=== PATIENT | male | born 1965 | race Hispanic/Latino ===

== ENCOUNTER 2021-03-05 00:21 | Inpatient (IN) | payer SELFPAY ==
[2021-03-05] VITALS (7 sets, daily range): BP systolic 125–158; BP diastolic 70–98
[~2021-03-05] VITALS: Ht 177.8 cm; Wt 139.5 kg
[2021-03-05] MEDS ORDERED: MORPHINE 4 MG SYG IV ONE (01:00)
[2021-03-05 01:32] LABS: BASOPHILS % (AUTO) 0.3 % (0.0-5.0); EOSINOPHILS % (AUTO) 2.6 % (0.0-8.0); HEMATOCRIT 45.5 % (42-54); LYMPHOCYTES % (AUTO) 17.2 % (21.0-51.0); MEAN CORPUSCULAR HEMOGLOBIN 29.2 pg (27.0-33.0); MEAN CORPUSCULAR HGB CONC 33.6 g/dL (32.0-36.0); MEAN CORPUSCULAR VOLUME 86.8 fL (79-99); MONOCYTES % (AUTO) 7.7 % (3.0-13.0); NEUTROPHILS % (AUTO) 71.7 % (40.0-77.0); PLATELET COUNT (AUTO) 265 K/uL (130-400); RED BLOOD CELL COUNT(AUTO) 5.24 MIL/uL (4.50-6.20); RED CELL DISTRIBUTION WIDTH 12.4 % (11.0-15.5); WHITE BLOOD COUNT (AUTO) 11.6 K/uL (4.8-10.8)
[2021-03-05 01:38] LABS: APPEARANCE,URINE Clear (CLEAR); BILIRUBIN,URINE Small (NEGATIVE); COLOR,URINE Dark Yellow (YELLOW); GLUCOSE, URINE (UA) Negative (NEGATIVE); KETONES,URINE Trace mg/dL (NEGATIVE); LEUKOCYTE ESTERASE ,URINE Trace (NEGATIVE); NITRATE,URINE Negative (NEGATIVE); OCCULT BLOOD,URINE Trace (NEGATIVE); PROTEIN,URINE Trace mg/dL (NEGATIVE)
[2021-03-05 01:52] LABS: CREATININE 0.9 mg/dL (0.5-1.5); POTASSIUM 4.7 mmol/L (3.5-5.1)
[2021-03-05 01:57] LABS: BACTERIA,URINE Rare /HPF (None Seen); BILIRUBIN,TOTAL 0.7 mg/dL (0.2-1.0); CRP QUANTITATIVE 53.7 mg/L (0.00-9.0); SQUAMOUS EPITHELIAL CELL,UR 0-2 /HPF (0-2); TOTAL PROTEIN, SERUM 7.7 g/dL (6.0-8.3); WBC,URINE 0-1 /HPF (0-1)
[2021-03-05 02:41] LABS: ERYTHROCYTE SEDIMENTATION RATE 27 MM/HR (0-20)
[2021-03-05] MEDS ORDERED: IOHEXOL 350 MG/ML 100ML INFUS..BTL IV ONE (02:50)
[2021-03-05] MEDS ORDERED: ZOSYN 3.375GM+NS 50ML 50 ML IV ONE (04:35)
[2021-03-05] MEDS ORDERED: 0.9%NACL 50ML 50 ML IV ONE ×2 (04:36→20:33)
[2021-03-05] MEDS ORDERED: ZOSYN 3.375GM +NS 50ML IV ONE (05:00)
[2021-03-05] MEDS: 0.9%NACL 1000ML 1,000 ML IV SCH ×2 (06:47→17:00)
[2021-03-05] MEDS ORDERED: LACTULOSE 20 GM/30 ML UDCUP PO PRN (07:00)
[2021-03-05] MEDS ORDERED: ONDANSETRON 4MG INJ IV PRN (07:00)
[2021-03-05] MEDS ORDERED: ACETAMINOPHEN 325 MG TAB PO PRN (07:00)
[2021-03-05] MEDS: FAMOTIDINE 20MG VIAL IV SCH ×2 (08:18→20:30)
[2021-03-05] MEDS: ENOXAPARIN SODIUM 40 MG/0.4 ML SYRINGE SQ SCH (08:18)
[2021-03-05 08:28] LABS: INR 0.96 (0.85-1.15); PROTHROMBIN TIME 10.5 SEC (9.6-11.6)
[2021-03-05 08:30] LABS: PARTIAL THROMBOPLASTIN TIME 27.6 SEC (26.3-35.5)
[2021-03-05 08:34] LABS: HEMOGLOBIN A1C 6.5 % (4.0-6.0)
[2021-03-05] MEDS: ZOSYN 3.375GM+NS 50ML 50 ML IV SCH ×2 (14:24→20:30)
[2021-03-05] MEDS ORDERED: MAGNESIUM CITRATE 296 ML SOLUTION PO SCH (19:00)
[2021-03-05] MEDS: ACETAMINOPHEN 325 MG TAB PO PRN (22:32)
[2021-03-06] VITALS (7 sets, daily range): BP systolic 133–160; BP diastolic 64–104
[2021-03-06] MEDS: 0.9%NACL 1000ML 1,000 ML IV SCH ×3 (03:00→22:02)
[2021-03-06] MEDS: ZOSYN 3.375GM+NS 50ML 50 ML IV SCH ×3 (03:53→20:25)
[2021-03-06] MEDS ORDERED: HYDRALAZINE 20MG/ML VIAL ONE (04:14)
[2021-03-06] MEDS ORDERED: HYDRALAZINE 20MG/ML VIAL IV PRN (04:30)
[2021-03-06] MEDS ORDERED: HYDRALAZINE 20MG/ML VIAL IM PRN (04:30)
[2021-03-06 05:42] LABS: BASOPHILS % (AUTO) 0.5 % (0.0-5.0); EOSINOPHILS % (AUTO) 2.1 % (0.0-8.0); HEMATOCRIT 49.4 % (42-54); LYMPHOCYTES % (AUTO) 16.6 % (21.0-51.0); MEAN CORPUSCULAR HEMOGLOBIN 28.8 pg (27.0-33.0); MEAN CORPUSCULAR HGB CONC 33.2 g/dL (32.0-36.0); MEAN CORPUSCULAR VOLUME 86.8 fL (79-99); MONOCYTES % (AUTO) 5.3 % (3.0-13.0); NEUTROPHILS % (AUTO) 75.1 % (40.0-77.0); PLATELET COUNT (AUTO) 341 K/uL (130-400); RED BLOOD CELL COUNT(AUTO) 5.69 MIL/uL (4.50-6.20); RED CELL DISTRIBUTION WIDTH 12.5 % (11.0-15.5); WHITE BLOOD COUNT (AUTO) 15.8 K/uL (4.8-10.8)
[2021-03-06 06:08] LABS: POTASSIUM 3.8 mmol/L (3.5-5.1)
[2021-03-06] MEDS: ENOXAPARIN SODIUM 40 MG/0.4 ML SYRINGE SQ SCH (09:00)
[2021-03-06] MEDS: FAMOTIDINE 20MG VIAL IV SCH ×2 (09:30→20:25)
[2021-03-07] VITALS (28 sets, daily range): BP systolic 136–190; BP diastolic 82–120
[2021-03-07] MEDS: ZOSYN 3.375GM+NS 50ML 50 ML IV SCH ×3 (04:56→20:53)
[2021-03-07 04:58] LABS: BASOPHILS % (AUTO) 0.4 % (0.0-5.0); EOSINOPHILS % (AUTO) 2.5 % (0.0-8.0); HEMATOCRIT 43.8 % (42-54); MEAN CORPUSCULAR HEMOGLOBIN 28.7 pg (27.0-33.0); MEAN CORPUSCULAR HGB CONC 32.9 g/dL (32.0-36.0); MEAN CORPUSCULAR VOLUME 87.3 fL (79-99); MONOCYTES % (AUTO) 6.6 % (3.0-13.0); NEUTROPHILS % (AUTO) 77.2 % (40.0-77.0); PLATELET COUNT (AUTO) 302 K/uL (130-400); RED BLOOD CELL COUNT(AUTO) 5.02 MIL/uL (4.50-6.20); RED CELL DISTRIBUTION WIDTH 12.4 % (11.0-15.5); WHITE BLOOD COUNT (AUTO) 13.4 K/uL (4.8-10.8)
[2021-03-07 05:11] LABS: POTASSIUM 3.4 mmol/L (3.5-5.1)
[2021-03-07] MEDS: ENOXAPARIN SODIUM 40 MG/0.4 ML SYRINGE SQ SCH (09:00)
[2021-03-07] MEDS: FAMOTIDINE 20MG VIAL IV SCH ×2 (10:17→21:19)
[2021-03-07] MEDS ORDERED: POTASSIUM CHLORIDE 20MEQ/100ML 100 ML IV PRN (12:00)
[2021-03-07] MEDS ORDERED: LIDOCAINE HCL-MPF 1% 2ML VIAL IV PRN (12:00)
[2021-03-07] MEDS ORDERED: LIDOCAINE PF 100MG/5ML (2%) SYRINGE 5ML ONE (15:34)
[2021-03-07] MEDS ORDERED: SUCCINYLCHOLINE CHLORIDE 20 MG/ML 10 ML VIAL ONE (15:34)
[2021-03-07] MEDS ORDERED: DEXAMETHASONE SOD PHOSPHATE 10MG/ML 1ML VIAL ONE (15:34)
[2021-03-07] MEDS ORDERED: MIDAZOLAM HCL 1 MG/ML 2ML VIAL ONE (15:35)
[2021-03-07] MEDS ORDERED: NEOSTIGMINE 5MG/5ML SYR IV ONE (15:36)
[2021-03-07] MEDS ORDERED: ONDANSETRON 4MG INJ ONE (15:36)
[2021-03-07] MEDS ORDERED: GLYCOPYRROLATE 1 MG/5 ML SYRINGE ONE (15:36)
[2021-03-07] MEDS ORDERED: FENTANYL CITRATE PF 50 MCG/1 ML 2ML VIAL ONE ×4 (15:36→18:50)
[2021-03-07] MEDS ORDERED: ROCURONIUM 10MG/1ML SYR 10 MG/ML ML ONE (15:36)
[2021-03-07] MEDS ORDERED: PROPOFOL 10 MG/ML 20ML VIAL IV ONE (15:36)
[2021-03-07] MEDS ORDERED: PHENYLEPHRINE HCL 10 MG/ML 1ML VIAL IV ONE (18:14)
[2021-03-07] MEDS ORDERED: CEFAZOLIN SODIUM 1 GM VIAL ONE (18:18)
[2021-03-07] MEDS ORDERED: ESMOLOL HCL 10 MG/ML 10 ML VIAL ONE (18:26)
[2021-03-07] MEDS ORDERED: LIDOCAINE HCL 1% 20 ML VIAL ONE (19:30)
[2021-03-07] MEDS ORDERED: BUPIVACAINE/EPI/PF 0.5% 30ML VIAL IJ ONE (19:30)
[2021-03-07] MEDS ORDERED: MEPERIDINE-PF 25 MG/ML SYG ONE ×3 (19:33→22:04)
[2021-03-07] MEDS ORDERED: SUGAMMADEX SODIUM 200 MG/2 ML VIAL IV ONE (19:57)
[2021-03-07] MEDS: 0.9%NACL 1000ML 1,000 ML IV SCH (20:15)
[2021-03-07] MEDS ORDERED: LABETALOL 20MG VIAL IV ONE (20:17)
[2021-03-07] MEDS ORDERED: HYDRALAZINE 20MG/ML VIAL ONE (20:58)
[2021-03-08] VITALS (27 sets, daily range): BP systolic 109–162; BP diastolic 67–95
[2021-03-08] MEDS: HYDROMORPHONE 1 MG INJ IVP PRN ×5 (02:24→21:01)
[2021-03-08 03:33] LABS: BASOPHILS % (AUTO) 0.2 % (0.0-5.0); EOSINOPHILS % (AUTO) 1.1 % (0.0-8.0); HEMATOCRIT 42.8 % (42-54); LYMPHOCYTES % (AUTO) 3.8 % (21.0-51.0); MEAN CORPUSCULAR HEMOGLOBIN 28.9 pg (27.0-33.0); MEAN CORPUSCULAR HGB CONC 32.7 g/dL (32.0-36.0); MEAN CORPUSCULAR VOLUME 88.4 fL (79-99); MONOCYTES % (AUTO) 3.8 % (3.0-13.0); NEUTROPHILS % (AUTO) 90.6 % (40.0-77.0); PLATELET COUNT (AUTO) 318 K/uL (130-400); RED BLOOD CELL COUNT(AUTO) 4.84 MIL/uL (4.50-6.20); RED CELL DISTRIBUTION WIDTH 12.4 % (11.0-15.5)
[2021-03-08 03:45] LABS: CREATININE 0.9 mg/dL (0.5-1.5); MAGNESIUM 2.1 mg/dL (1.80-2.40); PHOSPHORUS 4.4 mg/dL (2.5-4.9); POTASSIUM 4.1 mmol/L (3.5-5.1)
[2021-03-08] MEDS ORDERED: 0.9%NACL 100ML 0 ML ONE (04:36)
[2021-03-08] MEDS: ZOSYN 3.375GM+NS 50ML 50 ML IV SCH ×3 (04:46→20:48)
[2021-03-08] MEDS: ENOXAPARIN SODIUM 40 MG/0.4 ML SYRINGE SQ SCH (09:28)
[2021-03-08] MEDS: FAMOTIDINE 20MG VIAL IV SCH ×2 (09:28→20:48)
[2021-03-08] MEDS: 0.9%NACL 1000ML 1,000 ML IV SCH ×2 (15:00→15:47)
[2021-03-08] MEDS ORDERED: 0.9%NACL 100ML 100 ML ONE (20:26)
[2021-03-09] VITALS (18 sets, daily range): BP systolic 111–193; BP diastolic 73–100
[2021-03-09] MEDS: HYDROMORPHONE 1 MG INJ IVP PRN ×4 (00:26→14:50)
[2021-03-09] MEDS ORDERED: 0.9%NACL 100ML 100 ML ONE (04:49)
[2021-03-09] MEDS: ZOSYN 3.375GM+NS 50ML 50 ML IV SCH ×3 (04:52→21:14)
[2021-03-09] MEDS: FAMOTIDINE 20MG VIAL IV SCH ×2 (09:16→21:14)
[2021-03-09] MEDS: ENOXAPARIN SODIUM 40 MG/0.4 ML SYRINGE SQ SCH (09:23)
[2021-03-09] MEDS: 0.9%NACL 1000ML 1,000 ML IV SCH ×3 (11:00→21:00)
[2021-03-09] MEDS: MORPHINE 2 MG SYG IV PRN ×2 (19:30→23:31)
[2021-03-10] VITALS (7 sets, daily range): BP systolic 138–168; BP diastolic 84–99
[2021-03-10] MEDS: ZOSYN 3.375GM+NS 50ML 50 ML IV SCH ×3 (04:52→20:32)
[2021-03-10 05:53] LABS: BASOPHILS % (AUTO) 0.3 % (0.0-5.0); EOSINOPHILS % (AUTO) 1.5 % (0.0-8.0); HEMATOCRIT 38.9 % (42-54); LYMPHOCYTES % (AUTO) 12.4 % (21.0-51.0); MEAN CORPUSCULAR HEMOGLOBIN 28.6 pg (27.0-33.0); MEAN CORPUSCULAR HGB CONC 31.9 g/dL (32.0-36.0); MEAN CORPUSCULAR VOLUME 89.6 fL (79-99); MONOCYTES % (AUTO) 7.6 % (3.0-13.0); NEUTROPHILS % (AUTO) 77.4 % (40.0-77.0); PLATELET COUNT (AUTO) 330 K/uL (130-400); RED BLOOD CELL COUNT(AUTO) 4.34 MIL/uL (4.50-6.20); RED CELL DISTRIBUTION WIDTH 12.1 % (11.0-15.5); WHITE BLOOD COUNT (AUTO) 12.4 K/uL (4.8-10.8)
[2021-03-10] MEDS: 0.9%NACL 1000ML 1,000 ML IV SCH ×2 (06:01→16:39)
[2021-03-10 06:15] LABS: CREATININE 0.8 mg/dL (0.5-1.5); POTASSIUM 3.8 mmol/L (3.5-5.1)
[2021-03-10] MEDS: FAMOTIDINE 20MG VIAL IV SCH ×2 (10:00→20:32)
[2021-03-10] MEDS: ENOXAPARIN SODIUM 40 MG/0.4 ML SYRINGE SQ SCH (10:00)
[2021-03-10] MEDS: HYDROMORPHONE 1 MG INJ IVP PRN (16:20)
[2021-03-11] MEDS: 0.9%NACL 1000ML 1,000 ML IV SCH ×3 (03:23→21:13)
[2021-03-11 03:48] VITALS: BP 178/99
[2021-03-11] MEDS: ZOSYN 3.375GM+NS 50ML 50 ML IV SCH ×3 (04:23→21:13)
[2021-03-11 05:13] LABS: BASOPHILS % (AUTO) 0.7 % (0.0-5.0); HEMATOCRIT 39.5 % (42-54); LYMPHOCYTES % (AUTO) 14.8 % (21.0-51.0); MEAN CORPUSCULAR HEMOGLOBIN 28.4 pg (27.0-33.0); MEAN CORPUSCULAR HGB CONC 31.9 g/dL (32.0-36.0); MEAN CORPUSCULAR VOLUME 89.2 fL (79-99); MONOCYTES % (AUTO) 7.1 % (3.0-13.0); NEUTROPHILS % (AUTO) 72.1 % (40.0-77.0); PLATELET COUNT (AUTO) 365 K/uL (130-400); RED BLOOD CELL COUNT(AUTO) 4.43 MIL/uL (4.50-6.20); RED CELL DISTRIBUTION WIDTH 12.2 % (11.0-15.5); WHITE BLOOD COUNT (AUTO) 10.5 K/uL (4.8-10.8)
[2021-03-11 05:44] LABS: ALBUMIN 2.2 g/dL (3.5-5.0); BILIRUBIN,TOTAL 1.2 mg/dL (0.2-1.0); CREATININE 0.7 mg/dL (0.5-1.5); POTASSIUM 3.7 mmol/L (3.5-5.1); TOTAL PROTEIN, SERUM 6.8 g/dL (6.0-8.3)
[2021-03-11 07:42] VITALS: BP 157/93
[2021-03-11] MEDS: FAMOTIDINE 20MG VIAL IV SCH ×2 (08:52→21:13)
[2021-03-11] MEDS: ENOXAPARIN SODIUM 40 MG/0.4 ML SYRINGE SQ SCH (08:53)
[2021-03-11 11:14] VITALS: BP 156/90
[2021-03-11 17:15] VITALS: BP 147/91
[2021-03-11 20:20] VITALS: BP 169/99
[2021-03-11 23:34] VITALS: BP 165/94
[2021-03-12] MEDS: ZOSYN 3.375GM+NS 50ML 50 ML IV SCH ×3 (04:00→21:49)
[2021-03-12 04:46] VITALS: BP 163/97
[2021-03-12 05:07] LABS: BASOPHILS % (AUTO) 0.8 % (0.0-5.0); EOSINOPHILS % (AUTO) 5.8 % (0.0-8.0); HEMATOCRIT 39.8 % (42-54); LYMPHOCYTES % (AUTO) 14.5 % (21.0-51.0); MEAN CORPUSCULAR HEMOGLOBIN 28.9 pg (27.0-33.0); MEAN CORPUSCULAR HGB CONC 33.2 g/dL (32.0-36.0); MEAN CORPUSCULAR VOLUME 87.1 fL (79-99); MONOCYTES % (AUTO) 7.2 % (3.0-13.0); PLATELET COUNT (AUTO) 422 K/uL (130-400); RED BLOOD CELL COUNT(AUTO) 4.57 MIL/uL (4.50-6.20); RED CELL DISTRIBUTION WIDTH 12.2 % (11.0-15.5); WHITE BLOOD COUNT (AUTO) 9.9 K/uL (4.8-10.8)
[2021-03-12 05:41] LABS: ALBUMIN 2.3 g/dL (3.5-5.0); CREATININE 0.9 mg/dL (0.5-1.5); POTASSIUM 3.6 mmol/L (3.5-5.1); TOTAL PROTEIN, SERUM 7.1 g/dL (6.0-8.3)
[2021-03-12 07:52] VITALS: BP 174/102
[2021-03-12] MEDS: 0.9%NACL 1000ML 1,000 ML IV SCH ×2 (09:00→21:50)
[2021-03-12] MEDS: FAMOTIDINE 20MG VIAL IV SCH ×2 (09:06→21:50)
[2021-03-12] MEDS: ENOXAPARIN SODIUM 40 MG/0.4 ML SYRINGE SQ SCH (09:06)
[2021-03-12 10:57] VITALS: BP 146/72
[2021-03-12 16:34] VITALS: BP 164/96
[2021-03-12 20:24] VITALS: BP 154/87
[2021-03-12 23:11] VITALS: BP 146/92
[2021-03-13 04:15] VITALS: BP 149/93
[2021-03-13] MEDS: ZOSYN 3.375GM+NS 50ML 50 ML IV SCH ×3 (04:55→21:29)
[2021-03-13] MEDS: 0.9%NACL 1000ML 1,000 ML IV SCH ×2 (04:56→15:00)
[2021-03-13 05:45] LABS: BASOPHILS % (AUTO) 0.8 % (0.0-5.0); EOSINOPHILS % (AUTO) 5.7 % (0.0-8.0); HEMATOCRIT 39.8 % (42-54); LYMPHOCYTES % (AUTO) 18.4 % (21.0-51.0); MEAN CORPUSCULAR HEMOGLOBIN 28.4 pg (27.0-33.0); MEAN CORPUSCULAR HGB CONC 32.2 g/dL (32.0-36.0); MEAN CORPUSCULAR VOLUME 88.4 fL (79-99); MONOCYTES % (AUTO) 7.7 % (3.0-13.0); NEUTROPHILS % (AUTO) 65.4 % (40.0-77.0); PLATELET COUNT (AUTO) 404 K/uL (130-400); RED CELL DISTRIBUTION WIDTH 12.4 % (11.0-15.5); WHITE BLOOD COUNT (AUTO) 9.5 K/uL (4.8-10.8)
[2021-03-13 05:59] LABS: ALBUMIN 2.3 g/dL (3.5-5.0); BILIRUBIN,TOTAL 0.7 mg/dL (0.2-1.0); CREATININE 0.9 mg/dL (0.5-1.5); POTASSIUM 3.1 mmol/L (3.5-5.1); TOTAL PROTEIN, SERUM 7.2 g/dL (6.0-8.3)
[2021-03-13] MEDS ORDERED: KCL 20 MEQ ERTAB PO ONE (06:43)
[2021-03-13] MEDS ORDERED: POTASSIUM CHLORIDE 20MEQ/100ML 100 ML IV PRN (07:00)
[2021-03-13] MEDS ORDERED: POTASSIUM CHLORIDE 10% ELIXIR 20 MEQ/15 ML UDCUP PO PRN (07:00)
[2021-03-13] MEDS ORDERED: LIDOCAINE HCL-MPF 1% 2ML VIAL IV PRN (07:00)
[2021-03-13 08:00] VITALS: BP 157/95
[2021-03-13] MEDS: FAMOTIDINE 20MG VIAL IV SCH ×2 (09:04→21:29)
[2021-03-13] MEDS: ENOXAPARIN SODIUM 40 MG/0.4 ML SYRINGE SQ SCH (09:05)
[2021-03-13 11:38] VITALS: BP 135/89
[2021-03-13 14:29] LABS: CREATININE 0.9 mg/dL (0.5-1.5); POTASSIUM 3.7 mmol/L (3.5-5.1)
[2021-03-13 16:00] VITALS: BP 144/89
[2021-03-13 20:00] VITALS: BP 137/91
[2021-03-14] VITALS: BP 103/43
[2021-03-14] MEDS: 0.9%NACL 1000ML 1,000 ML IV SCH ×3 (00:11→21:02)
[2021-03-14 04:00] VITALS: BP 152/88
[2021-03-14] MEDS: ZOSYN 3.375GM+NS 50ML 50 ML IV SCH ×3 (04:29→19:41)
[2021-03-14 08:00] VITALS: BP 151/89
[2021-03-14] MEDS: ENOXAPARIN SODIUM 40 MG/0.4 ML SYRINGE SQ SCH (09:04)
[2021-03-14] MEDS: FAMOTIDINE 20MG VIAL IV SCH ×2 (09:04→19:41)
[2021-03-14 11:46] VITALS: BP 169/88
[2021-03-14 16:00] VITALS: BP 155/99
[2021-03-14 19:25] VITALS: BP 163/88
[2021-03-14] MEDS: ACETAMINOPHEN 325 MG TAB PO PRN (21:58)
[2021-03-15 00:11] VITALS: BP 160/79
[2021-03-15 03:31] VITALS: BP 147/85
[2021-03-15] MEDS: ZOSYN 3.375GM+NS 50ML 50 ML IV SCH ×3 (04:13→21:00)
[2021-03-15] MEDS: 0.9%NACL 1000ML 1,000 ML IV SCH ×2 (07:00→17:00)
[2021-03-15 07:49] VITALS: BP 145/90
[2021-03-15] MEDS: FAMOTIDINE 20MG VIAL IV SCH ×2 (07:53→21:00)
[2021-03-15] MEDS: ENOXAPARIN SODIUM 40 MG/0.4 ML SYRINGE SQ SCH (07:53)
[2021-03-15] MEDS ORDERED: ONDA4TAB4 PO (14:29)
[2021-03-15] MEDS ORDERED: CIP750 PO (14:29)
[2021-03-15] MEDS ORDERED: METR500T PO (14:29)
[2021-03-15] MEDS ORDERED: ACET1TAB25 PO (14:29)
[2021-03-15] MEDS ORDERED: POLY17PO4 PO (14:29)
[2021-03-15 16:35] VITALS: BP 135/73
[2021-03-15 20:00] VITALS: BP 183/91
== END 2021-03-15 21:30 | disposition home or self-care (01) | DRG 330 ==
LOC: EDH 00:21 → EDHIP 00:22 → 3BH 22:22 → 2CH 03-07 23:08 → 3AH 03-09 17:59
PROVIDERS: ADMIT Hospitalist; ATTEND Hospitalist
PROC: 0YU60JZ Supplement Left Inguinal Region with Synthetic Substitute, Open Approach (ICD-10-PCS; principal; 2021-03-07 16:15)
PROC: 0DBN0ZZ Excision of Sigmoid Colon, Open Approach (ICD-10-PCS; 2021-03-07 16:15)
PROC: 0D1N0Z4 Bypass Sigmoid Colon to Cutaneous, Open Approach (ICD-10-PCS; 2021-03-07 16:15)
DX: K40.90 Unilateral inguinal hernia, without obstruction or gangrene, not specified as recurrent (principal); K57.32 Diverticulitis of large intestine without perforation or abscess without bleeding; Z68.41 Body mass index [BMI] 40.0-44.9, adult; K63.89 Other specified diseases of intestine; N50.89 Other specified disorders of the male genital organs; E66.01 Morbid (severe) obesity due to excess calories; D72.829 Elevated white blood cell count, unspecified; Z20.822 Contact with and (suspected) exposure to COVID-19
CPT/HCPCS: 36415; 74177; 76870; 80048; 80053; 81001; 83036; 83605; 83735; 84100; 84145; 85025; 85610; 85651; 85730; 86140; 87635; 97039; A4344; A5061; C9803; G0378; J0330; J0360; J0690; J1100; J1170; J1650; J2001; J2175; J2250; J2270; J2370; J2405; J2543; J2704; J2710; J3010; J3490; J7030; J7120; Q9967